=== PATIENT | male | born 1965 | race Caucasian/White ===

== ENCOUNTER 2023-05-08 11:31 | Inpatient (IN) | payer OTHER ==
[~2023-05-08] VITALS: Ht 172.7 cm; Wt 78.9 kg
[2023-05-08 13:48] VITALS: BP 133/66; PULSE 84; RESP 18; TEMP 98.6
[2023-05-08] MEDS: METHOCARBAMOL 750 MG TABLET PO SCH (15:59)
[2023-05-08] MEDS: PREGABALIN 75 MG CAPSULE PO SCH (16:00)
[2023-05-08] MEDS: DICLOFENAC SODIUM 1% 100 GM GEL [2GM] TP SCH (16:02)
[2023-05-08] MEDS: ACETAMINOPHEN 325 MG TABLET PO PRN (16:40)
[2023-05-08] MEDS: OxyCODONE HCL 5 MG IR TABLET PO PRN (18:32)
[2023-05-08 20:15] VITALS: BP 106/66; PULSE 92; RESP 18; TEMP 98.9; O2SAT 98
[2023-05-08] MEDS: DOCUSATE SODIUM 100 MG CAPSULE PO SCH (20:52)
[2023-05-08] MEDS: TraZODone HCL 100 MG TABLET PO SCH (20:52)
[2023-05-08] MEDS: -LIDODERM PATCH NOTE- MISC SCH ×2 (20:52)
[2023-05-08] MEDS: APIXABAN 5 MG TABLET PO SCH (20:53)
[2023-05-08] MEDS: MELATONIN 5 MG TABLET PO SCH (20:53)
[2023-05-08] MEDS: SENNOSIDES 8.6 MG TABLET PO SCH (20:54)
[2023-05-09 05:30] VITALS: BP 104/62; PULSE 74; RESP 17; TEMP 98.8; O2SAT 97
[2023-05-09 08:05] VITALS: BP 121/68; PULSE 74; RESP 18; TEMP 98.4; O2SAT 98
[2023-05-09] MEDS: ETHYL ALCOHOL 62% ANTISEPTIC NASAL SANITIZER 0.6 ML AMPUL NASAL SCH (08:11)
[2023-05-09] MEDS: TAMSULOSIN HCL 0.4 MG CAPSULE PO SCH (08:12)
[2023-05-09] MEDS: LIDOCAINE 5% TRANSDERMAL PATCH TD SCH ×2 (08:14)
[2023-05-09] MEDS ORDERED: *PATIENT'S OWN MED [ENTER DRUG, DOSE, FREQUENCY IN COMMENTS] CLINICAL ONE (09:00)
[2023-05-09 10:43] LABS: BASOPHILS % (AUTO) 0.2 % (0.0-2.0); EOSINOPHILS % (AUTO) 1.4 % (1.0-6.0); HEMATOCRIT 31.2 % (41-53); HEMOGLOBIN 10.1 g/dL (13.5-17.5); LYMPHOCYTES # (AUTO) 1.1 K/uL (1.0-4.8); LYMPHOCYTES % (AUTO) 20.4 % (22.0-44.0); MEAN CORPUSCULAR HEMOGLOBIN 30.7 pg (26.0-34.0); MEAN CORPUSCULAR HGB CONC 32.4 G/dL (31.0-37.0); MEAN CORPUSCULAR VOLUME 95 fL (80-100); MONOCYTES # (AUTO) 0.7 K/uL (0.1-1.0); MONOCYTES % (AUTO) 12.4 % (2.0-9.0); NEUTROPHILS # (AUTO) 3.5 K/uL (1.8-7.7); NEUTROPHILS % (AUTO) 65.6 % (40.0-70.0); PLATELET COUNT (AUTO) 423 K/uL (150-450); RED BLOOD CELL COUNT(AUTO) 3.29 MIL/uL (4.50-5.90); RED CELL DISTRIBUTION WIDTH 17.6 % (11.5-14.5); WHITE BLOOD COUNT (AUTO) 5.3 K/uL (4.5-11.0)
[2023-05-09 11:11] LABS: ALANINE AMINOTRANSFERASE 56 U/L (12-78); ALBUMIN 2.6 g/dL (3.4-5.0); ALKALINE PHOSPHATASE 187 U/L (46-116); ANION GAP 5 mmol/L (8-16); ASPARTATE AMINOTRANSFERASE 27 U/L (15-37); BILIRUBIN,TOTAL 0.8 mg/dL (0.1-1.0); CALCIUM, TOTAL 8.6 mg/dL (8.8-10.5); CARBON DIOXIDE 29 mmol/L (22-29); CHLORIDE 102 mmol/L (98-107); GLOMERULAR FILTR. RATE CALC > 60 mL/min (>60); GLUCOSE,RANDOM 97 mg/dL (70-110); POTASSIUM 3.9 mmol/L (3.5-5.1); SODIUM SERUM 136 mmol/L (136-145); TOTAL PROTEIN, SERUM 6.5 g/dL (6.4-8.2); UREA NITROGEN, BLOOD 15 mg/dL (7-18)
[2023-05-09 12:38] VITALS: BP 124/64; PULSE 78; RESP 18; TEMP 98; O2SAT 98
[2023-05-09 18:33] VITALS: O2SAT 98
[2023-05-09 20:10] VITALS: BP 109/72; PULSE 87; RESP 18; TEMP 98.4; O2SAT 95
[2023-05-09] MEDS: OxyCODONE HCL 10 MG IR TABLET PO PRN (23:04)
[2023-05-10 00:14] LABS: APPEARANCE,URINE HAZY (CLEAR); BILIRUBIN,URINE NEGATIVE (NEGATIVE); COLOR,URINE LIGHT YELLOW (YELLOW); GLUCOSE, URINE (UA) NEGATIVE (NEGATIVE); KETONES,URINE NEGATIVE (NEGATIVE); LEUKOCYTE ESTERASE ,URINE NEGATIVE (NEGATIVE); NITRATE,URINE NEGATIVE (NEGATIVE); OCCULT BLOOD,URINE NEGATIVE (NEGATIVE); PROTEIN,URINE NEGATIVE (NEGATIVE); SPECIFIC GRAVITIY, URINE 1.014 (1.003-1.030); UROBILINOGEN,URINE <=1.0 mg/dL (<=1.0)
[2023-05-10 00:52] VITALS: O2SAT 95
[2023-05-10 08:05] VITALS: BP 111/69; PULSE 70; RESP 20; TEMP 98.8; O2SAT 97
[2023-05-10 20:04] VITALS: BP 109/56; PULSE 70; RESP 18; TEMP 98.7; O2SAT 100
[2023-05-11 01:03] VITALS: O2SAT 100
[2023-05-11 08:05] VITALS: BP 114/66; PULSE 74; RESP 19; TEMP 97.8; O2SAT 97
[2023-05-11 21:02] VITALS: BP 105/69; PULSE 83; RESP 18; TEMP 98; O2SAT 98
[2023-05-11] MEDS: PREGABALIN 75 MG CAPSULE PO SCH (21:02)
[2023-05-12 03:22] VITALS: O2SAT 98
[2023-05-12 08:05] VITALS: BP 124/72; PULSE 76; RESP 18; TEMP 98.4; O2SAT 98
[2023-05-12] MEDS: PREGABALIN 75 MG CAPSULE PO SCH (09:43)
[2023-05-12 19:15] VITALS: O2SAT 98
[2023-05-12 20:10] VITALS: BP 104/59; PULSE 85; RESP 18; TEMP 97.8; O2SAT 95
[2023-05-13 08:18] VITALS: BP 113/65; PULSE 65; RESP 19; TEMP 98.8; O2SAT 98
[2023-05-13] MEDS ORDERED: POLYETHYLENE GLYCOL 3350 17 GM PACKET PO PRN (18:00)
[2023-05-13 19:56] VITALS: BP 121/71; PULSE 79; RESP 18; TEMP 98.3; O2SAT 97
[2023-05-13] MEDS: DOCUSATE SODIUM 250 MG CAPSULE PO SCH (20:00)
[2023-05-13 23:46] VITALS: O2SAT 97
[2023-05-14 08:10] VITALS: BP 129/75; PULSE 72; RESP 19; TEMP 98.1; O2SAT 97
[2023-05-14] MEDS: BISACODYL 10 MG RECTAL RECTAL SUPPOSITORY PR PRN (10:52)
[2023-05-14 20:00] VITALS: BP 114/68; PULSE 78; RESP 18; TEMP 98.5; O2SAT 98
[2023-05-15 08:15] VITALS: BP 114/64; PULSE 67; RESP 19; TEMP 98.2; O2SAT 98
[2023-05-15 14:53] VITALS: O2SAT 98
[2023-05-15 19:25] VITALS: BP 112/71; PULSE 77; RESP 18; TEMP 98.2; O2SAT 100
[2023-05-15] MEDS: METHOCARBAMOL 750 MG TABLET PO ONE (22:13)
[2023-05-16 00:11] VITALS: O2SAT 97
[2023-05-16] MEDS ORDERED: TAMS0.4C94 PO (03:32)
[2023-05-16] MEDS ORDERED: APIX5TAB PO (03:32)
[2023-05-16] MEDS ORDERED: PREG75 PO ×2 (03:33)
[2023-05-16] MEDS ORDERED: MELA5TAB40 PO (03:34)
[2023-05-16] MEDS ORDERED: TRAZ-257 PO (03:34)
[2023-05-16] MEDS ORDERED: LIDO700A15 TP (03:35)
[2023-05-16] MEDS ORDERED: DICL100G60 TP (03:37)
[2023-05-16 08:05] VITALS: BP 109/65; PULSE 72; RESP 19; TEMP 98.8; O2SAT 98
[2023-05-16 20:00] VITALS: BP 99/63; PULSE 84; RESP 19; TEMP 98.5; O2SAT 97
[2023-05-17 08:05] VITALS: BP 110/67; PULSE 76; RESP 18; TEMP 98.6; O2SAT 98
[2023-05-17] MEDS ORDERED: DOCU-412 PO (10:16)
[2023-05-17] MEDS ORDERED: ACET325T51 PO (10:16)
[2023-05-17] MEDS ORDERED: DICL100G60 TP (10:16)
[2023-05-17] MEDS ORDERED: APIX5TAB PO (10:16)
[2023-05-17] MEDS ORDERED: MELA5TAB40 PO (10:16)
[2023-05-17] MEDS ORDERED: POLY17PO11 PO (10:16)
[2023-05-17] MEDS ORDERED: -Lidoderm Patch Note- MISC (10:16)
[2023-05-17] MEDS ORDERED: TRAZ-257 PO (10:17)
[2023-05-17] MEDS ORDERED: TAMS0.4C94 PO (10:17)
[2023-05-17] MEDS ORDERED: PREG75 PO ×2 (10:17)
[2023-05-17] MEDS ORDERED: SENN-277 PO (10:17)
[2023-05-17 11:30] VITALS: BP 118/64; PULSE 81; RESP 18; TEMP 98; O2SAT 98
[2023-05-17 12:42] VITALS: O2SAT 98
[2023-05-17 20:10] VITALS: BP 111/65; PULSE 65; RESP 18; TEMP 98.3; O2SAT 98
[2023-05-18 08:05] VITALS: BP 109/68; PULSE 66; RESP 19; TEMP 98.6; O2SAT 98
[2023-05-18 12:45] VITALS: O2SAT 98
[2023-05-18 16:14] VITALS: BP 118/64; PULSE 78; RESP 18; TEMP 98; O2SAT 98
[2023-05-18 21:45] VITALS: BP 111/66; PULSE 75; RESP 18; TEMP 98.2; O2SAT 97
[2023-05-18 23:09] VITALS: O2SAT 97
[2023-05-19 08:00] VITALS: BP 103/62; PULSE 68; RESP 19; TEMP 98.1; O2SAT 97
[2023-05-19 20:15] VITALS: BP 105/68; PULSE 105; RESP 18; TEMP 98.9; O2SAT 99
[2023-05-19 22:56] VITALS: O2SAT 99
[2023-05-20 08:05] VITALS: BP 128/73; PULSE 72; RESP 19; TEMP 98.1; O2SAT 97
[2023-05-20 09:20] VITALS: O2SAT 98
[2023-05-20 20:00] VITALS: BP 116/61; PULSE 75; RESP 18; TEMP 98; O2SAT 98
[2023-05-21] MEDS: PHENYLEPHRINE/SHK LV/MIN OIL/PET 57 GM OINTMENT TP PRN (06:31)
[2023-05-21 08:16] VITALS: BP 126/70; PULSE 73; RESP 19; TEMP 97.7; O2SAT 98
[2023-05-21 12:49] VITALS: O2SAT 98
[2023-05-21 19:29] LABS: APPEARANCE,URINE HAZY (CLEAR); BILIRUBIN,URINE NEGATIVE (NEGATIVE); COLOR,URINE LIGHT YELLOW (YELLOW); GLUCOSE, URINE (UA) NEGATIVE (NEGATIVE); KETONES,URINE NEGATIVE (NEGATIVE); LEUKOCYTE ESTERASE ,URINE LARGE (NEGATIVE); OCCULT BLOOD,URINE NEGATIVE (NEGATIVE); PROTEIN,URINE 30-70 mg/dL (NEGATIVE); SPECIFIC GRAVITIY, URINE 1.015 (1.003-1.030); UROBILINOGEN,URINE <=1.0 mg/dL (<=1.0)
[2023-05-21 19:38] LABS: BACTERIA,URINE Many /HPF (None Seen); NITRATE,URINE POSITIVE (NEGATIVE); RBC,URINE 0-2 /HPF (0-2); SQUAMOUS EPITHELIAL CELL,UR Rare /LPF (None Seen); WBC,URINE 26-50 /HPF (0-5)
[2023-05-21 20:00] VITALS: BP 99/44; PULSE 93; RESP 18; TEMP 99.4; O2SAT 96
[2023-05-21 21:00] VITALS: O2SAT 96
[2023-05-21] MEDS: PHENAZOPYRIDINE HCL 100 MG TABLET PO SCH (22:10)
[2023-05-22 08:15] VITALS: BP 128/70; PULSE 68; RESP 19; TEMP 98.2; O2SAT 97
[2023-05-22] MEDS: NITROFURANTOIN MONOHYD/M-CRYST 100 MG CAPSULE [MACROBID] PO SCH (11:00)
[2023-05-22 12:17] LABS: BASOPHILS % (AUTO) 0.5 % (0.0-2.0); HEMATOCRIT 37.1 % (41-53); HEMOGLOBIN 12.4 g/dL (13.5-17.5); LYMPHOCYTES # (AUTO) 1.2 K/uL (1.0-4.8); LYMPHOCYTES % (AUTO) 17.1 % (22.0-44.0); MEAN CORPUSCULAR HEMOGLOBIN 30.3 pg (26.0-34.0); MEAN CORPUSCULAR HGB CONC 33.3 G/dL (31.0-37.0); MEAN CORPUSCULAR VOLUME 91 fL (80-100); MONOCYTES # (AUTO) 0.8 K/uL (0.1-1.0); MONOCYTES % (AUTO) 10.5 % (2.0-9.0); NEUTROPHILS # (AUTO) 5.1 K/uL (1.8-7.7); NEUTROPHILS % (AUTO) 70.9 % (40.0-70.0); PLATELET COUNT (AUTO) 161 K/uL (150-450); RED BLOOD CELL COUNT(AUTO) 4.08 MIL/uL (4.50-5.90); RED CELL DISTRIBUTION WIDTH 16.1 % (11.5-14.5); WHITE BLOOD COUNT (AUTO) 7.2 K/uL (4.5-11.0)
[2023-05-22 12:31] LABS: ANION GAP 9 mmol/L (8-16); CALCIUM, TOTAL 8.3 mg/dL (8.8-10.5); CARBON DIOXIDE 26 mmol/L (22-29); CHLORIDE 100 mmol/L (98-107); GLOMERULAR FILTR. RATE CALC > 60 mL/min (>60); GLUCOSE,RANDOM 112 mg/dL (70-110); POTASSIUM 3.9 mmol/L (3.5-5.1); SODIUM SERUM 135 mmol/L (136-145); UREA NITROGEN, BLOOD 15 mg/dL (7-18)
[2023-05-22 14:15] VITALS: O2SAT 97
[2023-05-22 20:00] VITALS: BP 102/52; PULSE 86; RESP 18; TEMP 99.7; O2SAT 96
[2023-05-23 08:05] VITALS: BP 102/64; PULSE 76; RESP 18; TEMP 98.6; O2SAT 98
[2023-05-23 17:44] VITALS: O2SAT 98
[2023-05-23 20:00] VITALS: BP 114/71; PULSE 78; RESP 19; TEMP 98.2; O2SAT 97
[2023-05-24 08:05] VITALS: BP_SYST 104; BP_SYST 128; BP_DIAS 62; BP_DIAS 70; PULSE 66; PULSE 68; RESP 19; TEMP 97.9; TEMP 98.2; O2SAT 97; O2SAT 98
[2023-05-24 15:36] VITALS: O2SAT 98
[2023-05-24 20:00] VITALS: BP 107/62; PULSE 76; RESP 18; TEMP 98; O2SAT 97
[2023-05-25 08:20] VITALS: BP 111/67; PULSE 71; RESP 20; TEMP 98.1; O2SAT 97
[2023-05-25 12:48] VITALS: O2SAT 97
== END 2023-05-25 17:15 | disposition home or self-care (01) | DRG 963 ==
LOC: 2WR 13:45
PROVIDERS: ADMIT Physical Medicine & Rehabilitation; ATTEND Physical Medicine & Rehabilitation
DX: S22.31XA Fracture of one rib, right side, initial encounter for closed fracture (principal); J96.90 Respiratory failure, unspecified, unspecified whether with hypoxia or hypercapnia; S27.321A Contusion of lung, unilateral, initial encounter; S32.121A Minimally displaced Zone II fracture of sacrum, initial encounter for closed fracture; K68.3 Retroperitoneal hematoma; S32.89XA Fracture of other parts of pelvis, initial encounter for closed fracture; S32.019A Unspecified fracture of first lumbar vertebra, initial encounter for closed fracture; S32.029A Unspecified fracture of second lumbar vertebra, initial encounter for closed fracture; S32.039A Unspecified fracture of third lumbar vertebra, initial encounter for closed fracture; S32.049A Unspecified fracture of fourth lumbar vertebra, initial encounter for closed fracture; E46 Unspecified protein-calorie malnutrition; S32.059A Unspecified fracture of fifth lumbar vertebra, initial encounter for closed fracture; M21.371 Foot drop, right foot; R33.9 Retention of urine, unspecified; D64.9 Anemia, unspecified; F41.9 Anxiety disorder, unspecified; F43.0 Acute stress reaction; M79.604 Pain in right leg; R26.9 Unspecified abnormalities of gait and mobility; R35.0 Frequency of micturition; W13.2XXA Fall from, out of or through roof, initial encounter; Y93.89 Activity, other specified; Y92.89 Other specified places as the place of occurrence of the external cause; Y99.8 Other external cause status; Z86.718 Personal history of other venous thrombosis and embolism; Z68.26 Body mass index [BMI] 26.0-26.9, adult
CPT/HCPCS: 80048; 80053; 81001; 81003; 85025; 87081; 87086; 87186; 92523; 93970; 97110; 97112; 97163; 97167; 97530; 97535; 99366; G0238; Q9967